=== PATIENT | male | born 1960 | race Caucasian/White ===

== ENCOUNTER 2023-10-06 12:51 | Emergency (ER) | payer OTHER, SELFPAY ==
[2023-10-06 13:21] VITALS: BP 158/93
--- NOTE | 2023-10-06 14:32 | ED.GENMED ---
History of Present Illness
General
Chief Complaint: Flank Pain
Source: patient
Exam Limitations: none
Time Seen by Provider: 10/06/23 13:54
Nursing documentation reviewed up to this point in time: agreed with
Travel History
Have you had any contact with someone who has COVID-19?: No
Do you have any symptoms of coronavirus? Fever > 100 degrees, chills, cough, shortness of breath, sore throat, loss of taste or smell, muscle aches, or headache?: No
History of Present Illness
History of Present Illness:
62-year-old male with past medical history of previous kidney stones hypertension anxiety depression presenting to the emergency department today with concerns of left-sided flank discomfort intermittently over the past 2 days worsening today no
urinary symptoms mild nausea no vomiting no fevers. Feels similar to previous kidney stones.
Past History
Past History
ED Past Medical History: HTN and Other (Kidney stones)
ED Past Surgical History: Urological
Social History
Tobacco: Non-smoker
Personal:
Employment: Employed
Family History
Family History: Other (Noncontributory)
Review of Systems
Review of Systems
Allergies reviewed?: Yes
All Other Systems: ROS reviewed and negative except as documented in HPI and ROS
Phy Exam
Physical Exam
Physical Exam:
GENERAL: Alert , in no apparent distress
EYE: pupils equal and reactive
NECK: Supple, no significant adenopathy.
ENT: o/p clr, mmm.
CARDIAC: Regular rate and rhythm .
LUNGS: Clear breath sounds bilaterally, no acute respiratory distress, no wheezes/rales/rhonchi
ABDOMEN: Soft, without focal tenderness, no r/g, no cvat
NEUROLOGICAL: Alert and oriented, no focal neuro deficits
SKIN: Warm and dry, skin intact.
MUSCULOSKELETAL: No edema, well perfused.
PSYCH: Normal and appropriate interaction.
Course
Orders/Labs/Results
Orders:
Orders
10/06/23 14:16
0.9% Sodium Chloride 1000 ml [Nss] 1,000 ml IV BOLUS
Ketorolac [Toradol] 30 mg IV NOW STA
10/06/23 14:43
Complete Blood Count/With Diff Urgent
Comprehensive Metabolic Panel Urgent
Urinalysis Reflex To Culture Urgent
Date Specimen was Collected: 10/06/23
Time Specimen was Collected: 14:41
10/06/23 15:00
CT Abd/pel Without Iv Or Oral Urgent
Comment:
Reason For Exam: L flank pain
10/06/23 16:35
Diazepam [Valium] 5 mg PO NOW STA
Abnormal Lab Results
10/06/23
14:43
MCH 32.9 H pg
(27.0-31.0)
Carbon Dioxide 31 H mmol/L
(22-30)
10/06/23 14:43
10/06/23 14:43
Vital Signs
Initial and Last Documented VS:
Initial Vital Signs
Temp Pulse Resp BP Pulse Ox
98.0 F 77 16 158/93 97
10/06/23 13:21 10/06/23 13:21 10/06/23 13:21 10/06/23 13:21 10/06/23 13:21
Last Documented Vital Signs
Temp Pulse Resp BP Pulse Ox
98.0 F 77 16 158/93 97
10/06/23 13:21 10/06/23 13:21 10/06/23 13:21 10/06/23 13:21 10/06/23 13:21
MDM/Problems Addressed
MDM/Problems Addressed:
8-year-old male presenting to the emergency department today with concerns of left-sided flank disc over the past 2 days feels similar to previous kidney stones. Denies any vomiting but has had nausea no fevers on arrival vital signs are normal
patient in no obvious distress but does claim to have intermittent sharp pain to the left side plan for further assessment of potential kidney stone or ureteral stone. CT scan without evidence of acute process labs unremarkable urinalysis normal
patient with potential mechanical back pain plan for symptomatic treatment otherwise stable for outpatient follow-up return precautions given.
*Critical Care Note
Total Time (30-74mins, 75-104mins- exclusive of procedures): Not Applicable
ED Attending Note
-
Portions of this chart may have been created with voice recognition software.� Occasional wrong word or��sound alike� substitutions may have occurred due to the inherent limitations of voice recognition software.
Discharge Plan
Departure
Patient Disposition: Home (Routine Discharge)
Date of Disposition: 10/06/23
Time of Disposition: 17:50
Patient with high blood pressure during this ER visit?: No
Condition: Good
Covid-19: Not Applicable
Discharge Problem:
Back pain
Instructions: Back Pain
Prescriptions:
New
cyclobenzaprine 10 mg tablet
10 mg PO HS PRN (Reason: muscle spasm) Qty: 7 0RF
No Action
phenelzine [Nardil] 15 MG tablet
1.5 tab PO QID
Patient Comments:
he actually takes 2 in the am and one at night
lamotrigine 150 mg Tablet
150 mg PO BID
clonazepam [Klonopin] 1 mg Tablet
2.5 mg PO DAILYPRN PRN (Reason: sleep/anxiety)
benazepril 20 mg Tablet
20 mg PO DAILY
aripiprazole 5 mg Tablet
5 mg PO DAILY
Centrum Silver Men 300-600-300 mcg Tablet
1 tab PO DAILY
acetaminophen 325 mg Tablet
650 mg PO Q4HPRN PRN (Reason: mild pain) Qty: 0 0RF
ibuprofen 400 mg Tablet
400 mg PO Q6HPRN PRN (Reason: moderate pain) Qty: 0 0RF
polyethylene glycol 3350 [polyethylene glycol 3350] 17 gram powder in packet
17 grams PO DAILYPRN PRN (Reason: Miralax for constipation) Qty: 1 0RF
oxycodone 5 mg tablet
5 mg PO Q4HPRN PRN (Reason: breakthrough/severe pain) Qty: 14 0RF
Referrals:
Jamie Caballero MD [Active] - Follow up in 5-7 days
Susana Lewis DO [Family Provider] -
Activity Restrictions/Additional Instructions:
You can to the emergency department today with concerns of back discomfort. Here you had an evaluation that did not show evidence of kidney stone and normal labs as well as normal urinalysis. This may be mechanical back pain. Please take muscle
laxer as needed. Return to the emergency department any worsening, new or concerning symptoms.
Interventions
Interventions:
*Risk Screen - Suicide Last Done: 10/06/23 13:19
*General Assessment Last Done: 10/06/23 13:19
*Neglect/Abuse Screening Last Done: 10/06/23 13:19
VI-Srceaz-Vzmkftvswx Assessment Last Done: 10/06/23 14:40
ED-Male Genitourinary Assessment Last Done: 10/06/23 14:40
[2023-10-06] MEDS: TORADOL 30 MG IV (14:42)
[2023-10-06] MEDS: NSS 1000 IV (14:42)
[2023-10-06 14:54] LABS: % Basophils 0.5 % (0-2); % Eosinophils 2.2 % (0-6); % Immature Granulocytes 0.2 % (0-0.5); % Lymphocytes 25.3 % (20.5-51.1); % Neutrophils 64.8 % (42.2-75.2); Absolute Eosinophils 0.1 10^3/uL (0-0.7); Absolute Lymphocytes 1.5 10^3/uL (1.2-3.4); Absolute Monocytes 0.4 10^3/uL (0.1-0.6); Absolute Neutrophils 3.9 10^3/uL (1.4-6.5); Hematocrit 44.8 % (39.0-52.0); Hemoglobin 15.9 g/dL (13.0-18.0); Mean Corp Hgb Conc. 35.5 g/dL (33.0-37.0); Mean Corpuscular Hgb 32.9 pg (27.0-31.0); Mean Corpuscular Volume 92.6 fL (80.0-94.0); Mean Platelet Volume 9.3 fL (7.4-10.4); Nucleated Red Blood Cells % 0 % (-); Platelet Count 167 10^3/uL (130-400); Red Blood Cell Count 4.84 10^6/uL (4.70-6.10); Red Cell Dist. Width 12.1 % (11.5-14.5)
[2023-10-06 14:55] LABS: Urine Albumin Negative (Neg - Trace); Urine Bilirubin Negative (Negative); Urine Character Clear (Clear); Urine Color Yellow; Urine Glucose Negative (Negative); Urine Ketone Negative (Negative); Urine Leukocyte Negative (Negative); Urine Nitrite Negative (Negative); Urine Occult Blood Negative (Negative); Urine Urobilinogen Negative (Neg - 1+); Urine pH 6.5 (5.0-9.0)
[2023-10-06 15:06] LABS: ALT (SGPT) 35 U/L (0-50); AST (SGOT) 27 U/L (17-59); Albumin 4.3 g/dl (3.5-5.0); Alkaline Phosphatase 59 U/L (38-126); Blood Urea Nitrogen 16 mg/dl (9-20); Calcium 9.5 mg/dl (8.4-10.2); Carbon Dioxide 31 mmol/L (22-30); Chloride 100 mmol/L (98-107); Glucose 99 mg/dl (70-99); Potassium 4.3 mmol/L (3.5-5.1); Sodium 137 mmol/L (135-145); Total Bilirubin 0.5 mg/dl (0.2-1.3); Total Protein 7.2 g/dl (6.3-8.2); eGFR > 60.00
[2023-10-06] MEDS: VALIUM 5 MG PO (16:43)
--- NOTE | 2023-10-06 17:27 | EDRN ---
Ambulated to BR; reports pain improved to 4/10.
== END 2023-10-06 18:16 | disposition home or self-care (01) ==
LOC: EMR 12:51
PROVIDERS: Physician Assistant; EMERGENCY PHYSICIAN Emergency Medicine; FAMILY PHYSICIAN Family Medicine
DX: M54.9 Dorsalgia, unspecified (principal); Z87.442 Personal history of urinary calculi
CPT/HCPCS: 99284; 96374; 96361; 74176; 80053; 81003; 85025

== ENCOUNTER → 2024-07-26 13:07 | Outpatient (REF) | payer OTHER, SELFPAY | LOC: HWRAD 13:07 | PROVIDERS: ATTENDING PHYSICIAN Specialist; FAMILY PHYSICIAN Family Medicine | DX: R10.9 Unspecified abdominal pain (principal) | CPT/HCPCS: 76770 ==

== ENCOUNTER → 2024-09-11 12:11 | Outpatient (REF) | payer OTHER, SELFPAY | LOC: MRI 12:11 | PROVIDERS: ATTENDING PHYSICIAN Physical Medicine & Rehabilitation; FAMILY PHYSICIAN Family Medicine | DX: M54.16 Radiculopathy, lumbar region (principal); M54.17 Radiculopathy, lumbosacral region; M48.061 Spinal stenosis, lumbar region without neurogenic claudication; M48.07 Spinal stenosis, lumbosacral region; M48.062 Spinal stenosis, lumbar region with neurogenic claudication | CPT/HCPCS: 72148 ==

== ENCOUNTER 2024-10-14 06:24 | Day surgery (SDC) | payer OTHER, SELFPAY ==
[2024-10-04 11:30] LABS: Hematocrit 46.8 % (39.0-52.0); Hemoglobin 15.9 g/dL (13.0-18.0); Mean Corpuscular Hgb 32.1 pg (27.0-31.0); Mean Corpuscular Volume 94.5 fL (80.0-94.0); Mean Platelet Volume 9.6 fL (7.4-10.4); Platelet Count 195 10^3/uL (130-400); Red Blood Cell Count 4.95 10^6/uL (4.70-6.10); Red Cell Dist. Width 12.4 % (11.5-14.5); White Blood Cell Count 4.7 10^3/uL (4.8-10.8)
[2024-10-04 12:11] LABS: Blood Urea Nitrogen 20 mg/dl (9-20); Calcium 9.6 mg/dl (8.4-10.2); Carbon Dioxide 30 mmol/L (22-30); Chloride 102 mmol/L (98-107); Glucose 89 mg/dl (70-99); Potassium 4.4 mmol/L (3.5-5.1); Sodium 139 mmol/L (135-145); eGFR > 60.00
[2024-10-05 12:29] VITALS: BMI 27.9
[2024-10-14] VITALS (8 sets, daily range): BP systolic 137–164; BP diastolic 94–110; BMI 27.9
[2024-10-14] MEDS: Pyridium 200 MG PO (09:46)
[2024-10-14] MEDS: NORMOSOL-R/PLASMALYTE-A 1000 IV (10:08)
[2024-10-14] MEDS: OFIRMEV 100 IV (13:50)
== END 2024-10-14 17:00 | disposition home or self-care (01) ==
LOC: SDS 06:24
PROVIDERS: ATTENDING PHYSICIAN Specialist; FAMILY PHYSICIAN Family Medicine
DX: N20.0 Calculus of kidney (principal)
CPT/HCPCS: 52356; 36415; 74018; 76000; 80048; 85027; 93005; C1894; C2617

== ENCOUNTER → 2025-02-16 08:09 | Outpatient (REF) | payer OTHER, SELFPAY | LOC: RAD 08:09 | PROVIDERS: FAMILY PHYSICIAN Family Medicine | DX: M47.816 Spondylosis without myelopathy or radiculopathy, lumbar region (principal); M54.50 Low back pain, unspecified | CPT/HCPCS: 72131 ==